=== PATIENT | female | born 1985 | race Two or more races ===

== ENCOUNTER → 2020-05-25 08:00 | Outpatient (CLI) | payer OTHER | END | disposition home or self-care (01) | LOC: LAB 08:00 → ADM 05-29 14:00 → AMB-ENDOS 05-30 14:00 → EDSTATUS 05-30 14:00 | PROVIDERS: ATTEND Surgery | DX: U07.1 COVID-19 (principal); K21.9 Gastro-esophageal reflux disease without esophagitis; R10.13 Epigastric pain ==

== ENCOUNTER 2020-08-08 05:49 | Day surgery (SDC) | payer OTHER | END 2020-08-08 12:20 | disposition home or self-care (01) | LOC: AMB-ENDOS 05:49 | PROVIDERS: ATTEND Surgery | DX: K29.50 Unspecified chronic gastritis without bleeding (principal); K44.9 Diaphragmatic hernia without obstruction or gangrene; Z20.828 Contact with and (suspected) exposure to other viral communicable diseases ==